=== PATIENT | female | born 1990 | race Asian ===

== ENCOUNTER → 2016-11-16 | Emergency (ER) | payer OTHER ==
[~2016-11-16] VITALS: Ht 162.6 cm; Wt 72.7 kg
[2016-11-16 10:08] VITALS: BP 131/85; TEMP 97.9
[2016-11-16 11:51] VITALS: PULSE 66
== END ==
LOC: COL.ER 10:05
DX: L27.1 Localized skin eruption due to drugs and medicaments taken internally (principal); T37.0X5A Adverse effect of sulfonamides, initial encounter; L73.9 Follicular disorder, unspecified
CPT/HCPCS: J1100